=== PATIENT | male | born 1955 | race Caucasian/White ===

== ENCOUNTER → 2017-03-15 | Outpatient (CLI) | payer OTHER ==
[~2017-03-15] MED LIST: ESOM20CA PO; LORA10TA3 PO; SERT50TA5 PO
== END ==
LOC: STAR 09:33
PROVIDERS: ATTEND Surgery
DX: Z02.9 Encounter for administrative examinations, unspecified (principal)

== ENCOUNTER 2017-03-19 08:20 | Day surgery (SDC) | payer OTHER ==
[~2017-03-19] VITALS: Ht 175.3 cm; Wt 94.2 kg
[~2017-03-19 08:20] MED LIST changes: +BUPIVACAINE/PF 0.5% ONE; +EPINEPHRINE 1 MG/ML, 1ML ONE
[2017-03-19] MEDS ORDERED: LACTATED RINGERS 1,000 ML IV SCH (08:52)
[2017-03-19] MEDS ORDERED: MIDAZOLAM 1 MG/ML, 2ML ONE (10:50)
[2017-03-19] MEDS ORDERED: FENTANYL PF 250 MCG/5ML ONE (10:50)
[2017-03-19] MEDS ORDERED: PROPOFOL 10 MG/ML, 20ML ONE (10:51)
[2017-03-19] MEDS ORDERED: LIDOCAINE-MPF 2% ,5ML ONE (10:51)
[2017-03-19] MEDS ORDERED: ROCURONIUM 10 MG/ML,10ML ONE (10:52)
[2017-03-19] MEDS ORDERED: CEFAZOLIN 1,000 MG ONE ×2 (10:53)
[2017-03-19] MEDS ORDERED: SODIUM CHLORIDE 0.9% PF 10ML ONE (10:53)
[2017-03-19] MEDS ORDERED: GLYCOPYRROLATE 0.2MG/1ML, 5ML ONE (10:54)
[2017-03-19] MEDS ORDERED: NEOSTIGMINE 1 MG/ML, 10ML ONE (10:54)
[2017-03-19] MEDS ORDERED: BUPIVACAINE/PF 0.25% ONE (11:18)
[2017-03-19] MEDS ORDERED: EPINEPHRINE 1 MG/ML, 1ML ONE (11:18)
[2017-03-19] MEDS ORDERED: KETOROLAC 30 MG/1 ML ONE (12:19)
[2017-03-19] MEDS ORDERED: ONDANSETRON 2MG/ML, 2ML ONE ×2 (12:19)
[2017-03-19] MEDS ORDERED: DEXAMETHASONE 4 MG/ML, 1ML ONE ×2 (12:19)
[2017-03-19] MEDS ORDERED: ONDANSETRON 2MG/ML, 2ML IVPush PRN (13:00)
[2017-03-19] MEDS ORDERED: FENTANYL PF 100 MCG/2ML IV PRN (13:00)
[2017-03-19] MEDS ORDERED: LABETALOL 5MG/ML, 20ML IV PRN (13:00)
[2017-03-19] MEDS ORDERED: OXYcodone 5 MG/5 ML ORAL.SOL UDC PO PRN (13:00)
[2017-03-19] MEDS ORDERED: ACETAMINOPHEN 325 MG TABLET PO PRN (13:00)
[2017-03-19] MEDS ORDERED: PROMETHAZINE 12.5 MG SUPP PR PRN (13:00)
[2017-03-19] MEDS ORDERED: hydrALAzine 20 MG/ML, 1ML IV PRN (13:00)
[2017-03-19] MEDS ORDERED: MEPERIDINE/PF 25MG/0.5ML IVPush PRN (13:00)
[2017-03-19] MEDS ORDERED: HYDROmorphone 1 MG/ML, 1ML IV PRN (13:00)
== END 2017-03-19 15:05 ==
LOC: OUT 08:20
PROVIDERS: ATTEND Surgery
DX: K40.90 Unilateral inguinal hernia, without obstruction or gangrene, not specified as recurrent (principal); F41.9 Anxiety disorder, unspecified; K21.9 Gastro-esophageal reflux disease without esophagitis; E78.5 Hyperlipidemia, unspecified; Z98.890 Other specified postprocedural states; Z72.89 Other problems related to lifestyle
CPT/HCPCS: 49650; J0171; J0690; J1100; J1885; J2250; J2405; J2704; J2710; J3010; J3490; J7120; C1727; C1781